=== PATIENT | female | born 1990 | race Asian ===

== ENCOUNTER 2017-03-05 19:47 | Emergency (ER) | payer OTHER ==
[~2017-03-05] VITALS: Ht 165.1 cm; Wt 63.6 kg
[2017-03-05 20:44] VITALS: BP 129/94; PULSE 103; RESP 18; O2SAT 98
[2017-03-05 21:18] LABS: BASOPHILS % (AUTO) 0.2 % (0-3); EOSINOPHILS % (AUTO) 0.3 % (0-5); MONOCYTES % (AUTO) 7.1 % (4-12); Mean Corpuscular Hemoglobin 30.9 pg (27.0-35.0); Mean Corpuscular Volume 90.9 fL (81-100); Platelet Count 346 bil/L (150-400)
--- NOTE | 2017-03-05 22:16 | ED.REPORT ---
HPI-Headache Date of Service Mar 05, 2017 ED Provider: Main Lewis MD The pt is a 26 y/o female with no pertinent hx who presents to the ED from urgent care complaining of a headache, onset this morning. Associated sx include double vision, lightheadedness, abdominal pain, nausea, and vomiting. She denies any head trauma or any other sx at this time. She has experienced similar headache before which typically resolves after she takes venlafaxine. Her pain returned despite taking the medication today. Nursing Notes Stated Complaint: MIGRAINE,BLOOD TEST,SENT BY Chief Complaint: Headache Nursing Notes Reviewed: Yes Allergies: Coded Allergies: dimenhydrinate (Verified Allergy, Unknown, 03/05/17) latex (Verified Allergy, Unknown, 03/05/17) General Time Seen by MD: 22:14 Chief Complaint Headache Hx Obtained From: Patient Arrived By: Walk-in Sudden in Onset?: Yes Onset Occurred: 5 - 8 hours ago Symptom Duration: Since onset Location: : Generalized Quality: Aching Severity: Current: Moderate Severity: Maximum: Moderate Recent Healthcare: No recent doctor visit Similar Sx Previous: Yes Past Medical History Past Medical History none reported Past Surgical History none reported Smoking History Never Smoker Social History Alcohol Use: Denies alcohol use Other Social History: Good social support Ambulatory Status Independent Review of Systems Denies: head trauma GI: Reports: Abdominal pain, Nausea, Vomiting Neurologic: Reports: Headache, Lightheaded, Vision change (double vision) Complete sys rev & neg: except as marked. Physical Exam Initial Vital Signs Vital Signs (First) Date Time Temp Pulse Resp B/P Pulse Ox O2 Delivery O2 Flow Rate FiO2 03/05/17 20:44 36.7 103 18 129/94 98 Room Air Initial VS: Reviewed, Vital signs abnormal Respiratory: Breath sounds normal, Clear to auscultation, No respiratory distress Cardiovascular: Regular rate & rhythm, Heart sounds normal, Intact distal pulses Abdomen / GI: Soft, Non-tender, No guarding, No rebound, No distention Extremities: Vascular intact, Neuro intact, No swelling, No tenderness Skin: Warm, Dry, No cyanosis General/Constitutional: Awake, Alert, No acute distress, Well appearing, Cooperative Head / Eyes: Atraumatic, Normocephalic, PERRL Pupils: Positive: Photophobia L (mild), Photophobia R (mild) Neck: Atraumatic, Supple, Full range of motion Neurologic: Oriented X3, Speech NL, No motor deficits, No sensory deficits ENT: Atraumatic, Airway patent Mouth: Positive: Mucous membranes dry Interpretation & Diagnostics Lab Results Interpretation Result Diagram: 03/05/17211003/05/172110 Test 03/05/17 21:11 03/05/17 22:04 White Blood Count 9.6th/mm3 (3.8-10.1) Red Blood Count 4.82mil/mm3 (3.90-5.20) Hemoglobin 14.9g/dL (12.0-15.6) Hematocrit 43.8% (35.0-46.0) Mean Corpuscular Volume 90.9fL (81-100) Mean Corpuscular Hemoglobin 30.9pg (27.0-35.0) Mean Corpuscular Hemoglobin Concent 34.0% (32.0-37.0) Red Cell Distribution Width 11.6% (12.3-15.4) Platelet Count 346bil/L (150-400) Neutrophils (%) (Auto) 76.0% (40-74) Lymphocytes (%) (Auto) 16.2% (14-46) Monocytes (%) (Auto) 7.1% (4-12) Eosinophils (%) (Auto) 0.3% (0-5) Basophils (%) (Auto) 0.2% (0-3) Sodium Level 138mEq/L (134-144) Potassium Level 3.8mEq/L (3.5-5.2) Chloride Level 102mEq/L (97-108) Carbon Dioxide Level 19mmol/L (18-29) Blood Urea Nitrogen 9mg/dL (6-20) Creatinine 0.37mg/dL (0.57-1.00) Estimat Glomerular Filtration Rate 307mL/min (>59) Glucose Level 103mg/dL (60-99) Calcium Level 10.0mg/dL (8.5-10.1) Magnesium Level 2.0mg/dL (1.6-2.6) Total Bilirubin 0.4mg/dL (0.0-1.2) Aspartate Amino Transf (AST/SGOT) 17U/L (0-50) Alanine Aminotransferase (ALT/SGPT) 7U/L (0-32) Alkaline Phosphatase 70U/L (25-150) Total Protein 8.0g/dL (6.4-8.4) Albumin 4.6g/dL (3.4-5.0) Lipase 20U/L (13-60) Hold Urine Received (Received) Lab values outside NL range: no clinical significance. Re-Eval/Medical Decision Med Decision/Clinical Course 26-year-old female with migraine headache complicated by nausea and vomiting and dehydration. She was hydrated and given medications for headache and nausea with good relief she will be discharged home to sleep and follow-up with her primary provider as needed. Re-Evaluation/Progress #1: Time of Eval: 00:21 )( Patient Status: Condition improved Re-Evaluation/Progress Note: Rechecked pt. She feels better overall but would like more nausea and headache medicine. Re-Evaluation/Progress #2: Time of Eval: 01:38 )( Patient Status: Condition improved Re-Evaluation/Progress Note: Rechecked pt. Discussed lab results, diagnosis and plan to discharge. Pt understands and agrees with the plan. F/U instruction and RTER warning given. All questions addressed. Counseled Regarding: Diagnosis, Lab results, Need for follow-up, When/why to return to ED Discharge & Departure Impression: Primary Impression: Migraine Migraine type: with aura Status migrainosus presence: without status migrainosus Intractability: not intractable Qualified Code: G43.109 - Migraine with aura, not intractable, without status migrainosus Disposition: Home Discharge Condition All VS Reviewed: Yes Condition: Stable Patient Instructions: Migraine Headache (GEN) Additional Instructions: Labs are unremarkable You received IV normal saline, IV ondansetron, IV Toradol , IV Benadryl, IV prochlorperazine. Home to sleep. Follow-up as needed with your primary provider or return to the emergency room if you worsen. Referrals: Ilda Rodriguez DO (PCP) Scribe Attestation Portions of this note were transcribed by Andi Bravo. I,, personally performed the history,physical exam and medical decision-making;I reviewed and confirmed the accuracy of the information in the transcribed note. Signed by Marty Meneses. 03/05/17 copies to: GatzIlda patel Howard L MD Mar 05, 2017 22:16 Andi Bravo Mar 05, 2017 22:20
[2017-03-05] MEDS ORDERED: 0.9% Sodium Chloride 1,000 ML IV ONE (22:23)
[2017-03-05] MEDS ORDERED: Ketorolac 15 mg/mL Inj IVPUSH ONE (22:25)
[2017-03-05] MEDS ORDERED: Ondansetron 2 mg/mL 2 mL Inj IVPUSH ONE (22:25)
[2017-03-05] MEDS ORDERED: Ondansetron 2 mg/mL 2 mL Inj IVPUSH PRN (23:55)
[2017-03-06 00:02] VITALS: BP 124/87; PULSE 91; RESP 18; O2SAT 98
[2017-03-06] MEDS ORDERED: ProchlorPERazine 5 mg/mL 2 mL Inj IVPUSH ONE (00:25)
[2017-03-06 02:33] VITALS: BP 141/99; PULSE 93; RESP 16; O2SAT 100
== END 2017-03-06 02:25 | disposition home or self-care (01) ==
LOC: SED 19:47
DX: G43.109 Migraine with aura, not intractable, without status migrainosus (principal); R10.9 Unspecified abdominal pain; R11.2 Nausea with vomiting, unspecified; E86.0 Dehydration; Z91.040 Latex allergy status; Z88.8 Allergy status to other drugs, medicaments and biological substances
CPT/HCPCS: 36415; 80053; 81025; 83690; 83735; 85025; 96361; 96374; 96375; 96376; 99285; J0780; J1200; J1885; J2405; J7030